=== PATIENT | female | born 1990 | race Caucasian/White ===

== ENCOUNTER 2019-07-04 12:08 | Outpatient (CLI) | payer MEDICAID, SELFPAY ==
--- NOTE | 2019-07-04 12:29 | US_ITS ---
WS: [id number] Obstetrical ultrasound, less than 14 weeks. HISTORY: DATING COMPARISON: None available. Transvaginal imaging is submitted. There is a gestational sac with a mean diameter of 1.4 cm correspo nding to a gestation of 6 weeks and 4 days. No crown-rump length, yolk sac or heart rate identified.G estational sac is irregular. Cervix is closed. No free fluid. No adnexal masses. Notified Marianne Goodrich MD at 07/04/2019 1:14 PM. Report discussed with nurse at Dr. Goodrich's off ice. US/ transvaginal [id number] IMPRESSION: Intrauterine gestational sac of 6 weeks and 4 days. No intrauterine gestation i dentified. Ectopic cannot be excluded without a viable intrauterine g estation identified. This is likely a blighted ovum.
== END 2019-07-04 12:09 | disposition home or self-care (01) ==
LOC: RAD 12:11
PROVIDERS: PCP Family Medicine; Visit Provider Family Medicine
DX: O36.80X0 Pregnancy with inconclusive fetal viability, not applicable or unspecified (principal); Z3A.01 Less than 8 weeks gestation of pregnancy
CPT/HCPCS: 76830

== ENCOUNTER 2019-07-12 14:00 | Outpatient (CLI) | payer MEDICAID, SELFPAY ==
--- NOTE | 2019-07-12 14:03 | US_ITS ---
WS: [id number] ULTRASOUND PELVIS TECHNIQUE: Transabdominal. CLINICAL INFORMATION: UNCERTAIN VIABILITY Comparison July 04, 2019 : No. FINDINGS: No visualized gestational sac or pole today. Previously visualized gestational sac is no longer visualized. Uterus Orientation: Anteverted. Size: 8.8 cm x 5.1 cm x 6.7 cm Masses: None. Cervix: cm. Endometrium: Normal. Endometrium thickness: 11.3 mm Adnexa: Normal. Both ovaries are normal. Free fluid: None. Other findings: None. US/US OB transvaginal [id number] IMPRESSION: 1. No evidence of gestational sac or pole. Endometrium measures 11.3 mm. 2. Both ovaries are normal in appearance. 3. No free fluid in the cul-de-sac. .
== END 2019-07-12 14:01 | disposition home or self-care (01) ==
LOC: RAD 14:01
PROVIDERS: PCP Family Medicine; Visit Provider Family Medicine
DX: O36.80X0 Pregnancy with inconclusive fetal viability, not applicable or unspecified (principal)
CPT/HCPCS: 76817

== ENCOUNTER 2020-12-13 12:38 | Inpatient (IN) | payer SELFPAY ==
[2020-12-13] VITALS (8 sets, daily range): BP systolic 108–132; BP diastolic 71–82; PULSE 71–98; RESP 16–18; TEMP 36.4–37.1; O2SAT 96–99; BMI 25.2
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
--- NOTE | 2020-12-13 13:27 | ECG_ITS ---
[facility] Test Date: 2020-12-13 Pat Name: Ilana Solis Department: Room: Gender: Female Gse Mechanic: : 1990 Requested By: Nate Avilez Order Number: [id number] Stan MD: Joss Norton M.D. Measurements Intervals [place] Rate: 74 P: 47 MN: 152 QRS: 20 QRSD: 100 T: 20 QT: 390 QTc: 434 Interpretive Statements SINUS RHYTHM WITH SINUS ARRHYTHMIA Compared to ECG 08/19/2018 12:42:20 Sinus tachycardia no longer present Short MN interval no longer present Electronically Signed On 12-13-2020 22:38:59 CDT by Joss Norton M.D. [email or web address] general hospitalWear My Tagsst. [email or web address].[employer]/store/OM/[id number]
[2020-12-13 14:15] LABS: Basophils % 0.7 %; Eosinophils # 0.1 10^3/uL (0.0-0.8); Eosinophils % 2.4 %; Hematocrit 41.9 % (37.0-47.0); Hemoglobin 13.1 g/dL (11.5-15.3); Lymphocytes # 1.4 10^3/uL (0.8-4.8); Lymphocytes % 29.5 %; Mean Corpuscular HGB Conc 31.3 g/dL (30.0-36.0); Mean Corpuscular Hemoglobin 29.7 pg (28.0-34.0); Mean Platelet Volume 9.9 fL (7.4-10.4); Monocytes # 0.4 10^3/uL (0.2-0.9); Monocytes % 8.5 %; Neutrophils # 2.68 10^3/uL (1.8-7.7); Neutrophils % 58.7 %; Nucleated Red Blood Cells % 0 %; Platelet Count 252 10^3/cmm (130-400); Red Blood Count 4.41 10^6/uL (4.1-5.3); Red Cell Distribution Width 12.7 % (12.1-15.1); White Blood Count 4.6 10^3/uL (4.0-10.0)
[2020-12-13 14:18] LABS: HCG Qualitative Urine. Negative (Negative)
[2020-12-13] MEDS: sodium chloride 0.9% 1,000 ML 999 ML IV (14:22)
[2020-12-13 14:31] LABS: INR 0.91 (0.8-1.2)
[2020-12-13] MEDS: ibuprofen 600 mg Tablet PO (14:33)
[2020-12-13 14:43] LABS: Alanine Aminotransferase 34 U/L (0-33); Albumin Level 4.4 g/dL (3.5-5.2); Alcohol Level 162 mg/dL (0-10); Alkaline Phosphatase 82 IU/L (35-105); Anion Gap 15.6 (5-19); Aspartate Amino Transferase 86 U/L (0-32); Blood Urea Nitrogen 9 mg/dL (6-20); Calcium 8.9 mg/dL (8.5-10.5); Carbon Dioxide 25 mmol/L (22-29); Chloride 103 mmol/L (98-107); Glomerular Filtration Rate 118.2 mL/min (90-130); Glucose 85 mg/dL (65-115); Osmolality Calculated 288 mOsm/kg (285-295); Potassium 3.6 mmol/L (3.5-5.1); Sodium 140 mmol/L (136-145); Total Bilirubin 0.4 mg/dL (0.15-1.2); Total Protein 8.4 g/dL (6.6-8.7)
[2020-12-13 14:47] LABS: Acetaminophen < 5.0 ug/mL (10-30); Salicylate < 0.3 mg/dL (3-10)
[2020-12-13 14:55] LABS: Add Urine Microscopic? YES; Bilirubin Urine Neg (Negative); Blood Urine 3+ (Negative); Glucose Urine UA Norm (Normal); Ketones Urine Negative (Negative); Leukocyte Esterase Urine Negative (Negative); Nitrate Urine Negative (Negative); Protein Urine Neg (Negative); RBC Urine 25-40 /hpf (0-2); Specific Gravity, Urine 1.015 (1.005-1.030); Squamous Epithelial Cell Urine 0-4 /hpf (0-5); Urine Appearance Clear (CLEAR); Urine Color Yellow (Yellow); Urobilinogen Urine Norm (Negative); pH Urine 6.5 (5-7)
[2020-12-13 14:56] LABS: Add Urine Culture? Yes; Bacteria Urine TRACE /hpf; Mucus Urine TRACE /hpf
[2020-12-13] MEDS: ondansetron 4 MG Tablet PO (20:58)
[2020-12-13] MEDS: trazodone 50 mg Tablet PO (20:58)
[2020-12-13] MEDS: hyDROXYzine 25 mg Capsule 50 MG PO (20:58)
[2020-12-13] MEDS: LORazepam 2 mg Tablet PO (21:28)
[2020-12-14 06:00] VITALS: BP 114/80; PULSE 98; RESP 17; TEMP 36.4; O2SAT 98
[2020-12-14 06:36] VITALS: BP 106/74; PULSE 84; RESP 17; TEMP 36.7; O2SAT 99
[2020-12-14] MEDS: multivitamin therapeutic Tablet 1 TAB PO (08:53)
[2020-12-14] MEDS: folic acid 1 mg Tablet PO (08:53)
[2020-12-14] MEDS: thiamine 100 mg Tablet PO (08:53)
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
[2020-12-14] MEDS: blistex lip oint 7 gm Tube 1 APPLIC TOPICAL ×2 (12:09→21:45)
[2020-12-14 14:00] VITALS: BP 120/88; PULSE 107; RESP 17; TEMP 37.1; O2SAT 95
[2020-12-14] MEDS: trazodone 50 mg Tablet PO (21:48)
[2020-12-14 22:00] VITALS: BP 118/83; PULSE 73; RESP 17; TEMP 36.7; O2SAT 97
--- NOTE | 2020-12-15 01:02 | PC.NURSE ---
Patient requested and received PRN medications as follows- 2144 Bilstex for fever blister relief that was somewhat helpful. 2147- Trazodone for sleep aid that has been effective.
--- NOTE | 2020-12-15 04:27 | PC.NURSE ---
Sleeping at time of 0400 CIWA.
[2020-12-15 06:00] VITALS: BP 113/75; PULSE 64; RESP 16; TEMP 36.9; O2SAT 99
[2020-12-15] MEDS: folic acid 1 mg Tablet PO (09:02)
[2020-12-15] MEDS: thiamine 100 mg Tablet PO (09:02)
[2020-12-15] MEDS: multivitamin therapeutic Tablet 1 TAB PO (09:02)
[2020-12-15] MEDS: sertraline 50 mg Tablet PO ×2 (09:03→10:36)
[2020-12-15] MEDS: blistex lip oint 7 gm Tube 1 APPLIC TOPICAL (11:15)
--- NOTE | 2020-12-15 12:17 | PM.NPN ---
Subjective NPU Subjective: Interval history: The patient says she is feeling better today and not noticing any withdrawal symptoms at this point. Most recent CIWA score was 3. She is a bit surprised that she is not having as much withdrawal, because she was not able to go through withdrawal on her own at home, no matter how many times she tried. She did feel sad when she called her son, and he was crying and missing her. She reminded herself that she is here for a reason, and that helped her stay motivated to continue her treatment. She says she always fought depression and is committed to seeing if the antidepressant Zoloft will be helpful. She thinks it might have made her eyes feel a bit weird this morning, but it is tolerable. She did have some sweating when she was sleeping last night, which could be from Zoloft or from alcohol withdrawal. She has no suicidal or homicidal ideation. We talked about her plan to attend outpatient treatment through [facility]. She will meet with the discharge planners tomorrow to begin setting that up. Mental Status Exam MSE Comments: I met with the patient in her room with the door open, and she was dressed in hospital scrubs and appropriately groomed. She was calm, cooperative, interactive, and made good eye contact. No psychomotor agitation or retardation. Speech is at a regular rate and rhythm, normal volume, good articulation, not pressured. Alert, oriented to person, place, time, and situation. Attention and concentration were intact. Memory is intact. Mood is improved. Affect is pleasant. Thought process is logical and goal-directed. Thought content: Denies auditory and visual hallucinations. No delusions or paranoia are noted. No current suicidal ideation here, and no homicidal ideation. She did have suicidal ideation at home. Fund of knowledge is intact to exam. Language is intact to exam. Insight and judgment appear to be fair. Impulse control is fair as well. Vitals/I&O/Wt Last Vital Signs Temp 98.4 F 12/15/20 06:00 Pulse 64 12/15/20 06:00 Resp 16 12/15/20 06:00 BP 113/75 12/15/20 06:00 Pulse Ox 99 12/15/20 06:00 Weight last 48 hrs Weight 70.76 kg Weight 70.76 kg Data NPU : 12/13/20 14:00 12/13/20 14:00 Micro: Microbiology 12/13/20 01:35 Urine Culture - Final Urine,Clean Catch Strep agalactiae - (group b) Microbiology 12/13/20 01:35 Urine,Clean Catch Urine Culture - Final Strep agalactiae - (group b) A&P Assessment and plan (1) Major depressive disorder, recurrent severe without psychotic features: Status: Acute (2) Alcohol use disorder, moderate, dependence: Status: Acute (3) Posttraumatic stress disorder with dissociative symptoms: Status: Acute Additional A&P Information This is a 30 year old female with a history of childhood trauma, PTSD, depression, and heavy alcohol use who was admitted for suicidal ideation with the plan to hang herself. She is also been drinking 1 to 2 pints of vodka a day and reports withdrawal nausea and shaking every morning. She has an intention to stop drinking. She also needs treatment for her PTSD which causes daily symptoms as well. RECOMMENDATION AND PLAN: 1. Started Zoloft 50 mg daily for depression, anxiety and PTSD symptoms. Side effects may include eyes feeling weird and sweating while asleep. 2. Continue every 15 minute checks for safety. 3. Encourage individual, group and milieu therapies. 4. Encourage sober living treatment after discharge at the highest level of care to which he is willing to commit. Involuntary Hold Information 96 Hour Hold: 96 Hour Involuntary Admission: Yes 96 Hour Hold Ending Date: 12/19/20 96 Hour Hold Ending Time: 17:15 Attestations U Medical Necessity Statement*: Psychiatric hospitalization is medically necessary to prevent access to lethal means, to reevaluate medication, and to coordinate a safe discharge. Patient will be in the hospital for over 2 midnights. Likely length of stay is 4 days. Coding Level of Care Code Acute Hand I Thermal Cutter for Rahulg Fwd Diagnoses Major depressive disorder, recurrent severe without psychotic features F33.2 Alcohol use disorder, moderate, dependence F10.20 Posttraumatic stress disorder with dissociative symptoms F43.10
[2020-12-15 14:00] VITALS: BP 105/77; PULSE 70; RESP 16; TEMP 36.7; O2SAT 98
[2020-12-15] MEDS: acetaminophen 325 mg Tablet 650 MG PO (14:59)
[2020-12-15] MEDS: LORazepam 2 mg Tablet PO (16:37)
[2020-12-15] MEDS: ondansetron 4 MG Tablet PO (16:37)
[2020-12-15 20:28] VITALS: BP 110/83; PULSE 88; RESP 20; TEMP 37; O2SAT 94
--- NOTE | 2020-12-15 21:36 | PC.NURSE ---
Upon assessment patient lying in bed resting. Patient denied any pain, depression, anxiety, SI/HI, hallucinations. Patient stated she feels really good and is ready to go to sleep. Will continue to monitor and follow plan of care. Q 15 min safety checks per protocol.
[2020-12-16 05:59] VITALS: BP 115/76; PULSE 55; RESP 17; TEMP 36.8; O2SAT 97
[2020-12-16] MEDS: sertraline 50 mg Tablet PO (07:50)
[2020-12-16] MEDS: acetaminophen 325 mg Tablet 650 MG PO (07:50)
[2020-12-16] MEDS: multivitamin therapeutic Tablet 1 TAB PO (07:50)
[2020-12-16] MEDS: thiamine 100 mg Tablet PO (07:51)
[2020-12-16] MEDS: folic acid 1 mg Tablet PO (07:51)
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
[2020-12-16 11:22] VITALS: BP 115/76; PULSE 55; RESP 17; TEMP 36.8; O2SAT 97
--- NOTE | 2020-12-16 11:40 | PC.NURSE ---
Discussed discharge plan of care with patient. Also notified and educated patient on discharge medication sertraline that is being delivered by our pharmacy. Patient verbalized understanding. Filled out survey and agreed that all her belongings were listed.
== END 2020-12-16 12:56 | disposition home or self-care (01) | DRG 885 ==
LOC: ER 13:07 → NP 16:44
PROVIDERS: Admitting Provider Psychiatry & Neurology Child & Adolescent Psychiatry; Emergency Provider Emergency Medicine; Visit Provider Psychiatry & Neurology Child & Adolescent Psychiatry
DX: F33.2 Major depressive disorder, recurrent severe without psychotic features (principal); R45.851 Suicidal ideations; F43.12 Post-traumatic stress disorder, chronic; X58.XXXS Exposure to other specified factors, sequela; F10.20 Alcohol dependence, uncomplicated
CPT/HCPCS: 80053; 80307; 81001; 81025; 84443; 85025; 85610; 87086; 93005; 96360; 97165; 99285; J7030; Q0162

== ENCOUNTER 2022-03-11 10:53 | Outpatient (CLI) | payer BC, MEDICAID, SELFPAY ==
--- NOTE | 2022-03-11 | US_ITS ---
WS: [id number] EARLY OBSTETRICAL ULTRASOUND (<14 WEEKS). HISTORY: FIRST TRIMESTER COMPARISON: None available. Single intrauterine gestational sac is identified. Cardiac activity at 153 BPM. [place]-rump length suly sures 7.2 cm which corresponds to a gestation of 13w3d. Normal-appearing yolk sac and amnion demonstr ated. No subchorionic hemorrhage. No free fluid. Ovaries not identified. US/US OB <= 14 weeks fetus [id number] IMPRESSION: 1. Single intrauterine gestation of 13 weeks 3 days with an EDC of 09/13/2022. 2. Normal heart rate.
== END 2022-03-11 10:54 | disposition home or self-care (01) ==
LOC: RAD 10:56
PROVIDERS: PCP Family Medicine; Visit Provider Family Medicine
DX: Z34.81 Encounter for supervision of other normal pregnancy, first trimester (principal)
CPT/HCPCS: 76801

== ENCOUNTER 2022-04-14 08:56 | Emergency (ER) | payer BC, MEDICAID, SELFPAY ==
[2022-04-14] VITALS (7 sets, daily range): BP systolic 83–111; BP diastolic 63–74; PULSE 72–112; RESP 16–18; TEMP 36.7; O2SAT 95–100; BMI 28.2
--- NOTE | 2022-04-14 09:50 | XR_ITS ---
WS: [id number] Exam: XR chest 1V portable [id number] Date/Time of Exam: 04/14/2022 9:56 AM Reason For Exam: dyspnea/cough No priors Findings: The lungs are clear and fully expanded. Costophrenic angles are sharp. No infiltrates. Bronchovascula r relief appears normal. Cardiac silhouette is unremarkable. Bony elements are intact. XR/XR chest 1V portable [id number] IMPRESSION: Unremarkable chest radiograph.
--- NOTE | 2022-04-14 09:51 | ED_ITS ---
HPI - SOB/Dyspnea General: Chief Complaint: Shortness of Breath/Dyspnea Stated Complaint: sob Time Seen by Provider: 04/14/22 09:16 Source: patient Mode of arrival: ambulatory History of Present Illness: HPI Narrative: 32-year-old female presents emergency room complaining of shortness of breath. She reports scant productive cough with clear sputum began yesterday. She is at 18 weeks gestation. She states she feels like she is breathing through a straw. She states she has no history of asthma or reactive airways. No diarrhea no vomiting. No fever sweats or chills. MD elicited complaint: shortness of breath and cough Onset (ago): day(s) (2) Timing: constant Severity: mild Exacerbating factors: nothing Relieving factors: nothing Associated symptoms: Deny abdominal pain, chest congestion, chest pain, cough, diaphoresis, dizziness, extremity pain, fever(s), hemoptysis, lightheadedness, myalgias, nausea, orthopnea, palpitations, paresthesias, polydipsia, polyuria, rash, sense of impending doom, syncope or vomiting Treatment prior to arrival: none Review of Systems Const: Denies: fever(s) or diaphoresis ENMT: Denies: throat pain, ear or mastoid pain, nasal discharge or nasal congestion Card: Denies: chest pain, palpitations, lightheadedness, syncope or orthopnea Resp: Denies: hemoptysis or chest congestion GI: Denies: abdominal pain, nausea or vomiting : Denies: flank pain, difficulty voiding, dysuria, urinary frequency or urinary urgency Musc: Denies: extremity pain Skin/Breast: Denies: rash or pruritus Neuro: Denies: dizziness Endo: Denies: polyuria or polydipsia Physical Exam Const: GENERAL APPEARANCE: cooperative and comfortable ORIENTATION/CONSCIOUSNESS: Yes awake, Yes oriented to person, Yes oriented to place and Yes oriented to time HENMT: COMMON NORMALS: normocephalic, atraumatic and hearing grossly normal bilaterally HEAD & SCALP: normocephalic and atraumatic Resp: COMMON NORMALS: normal respiratory effort, No retractions and No use of accessory muscles AUSCULTATION: wheezes Cardio: COMMON NORMALS: regular rate, regular rhythm and No murmurs present (Cardio) RATE: regular rate RHYTHM: regular rhythm GI: COMMON NORMALS: Soft to palpation and No hepatosplenomegaly present AUSCULTATION: Yes normoactive bowel sounds PALPATION: Yes Soft to palpation, No Tenderness to palpation present (GI), No Guarding due to palpation present (GI) and Yes No hepatosplenomegaly present Extremity: COMMON NORMALS: normal to inspection, capillary refill normal, no clubbing, cyanosis or edema, no calf tenderness and no pedal edema Neuro: SENSORIUM/ORIENTATION: Yes oriented to person, Yes oriented to place and Yes oriented to time Skin: COMMON NORMALS: no rashes or lesions noted GENERAL SKIN EXAM: no rashes or lesions noted Course Vital Signs: Vital signs: Vital Signs Temperature 98.1 F 04/14/22 09:08 Pulse Rate 72 04/14/22 10:34 Respiratory Rate 18 04/14/22 10:30 Blood Pressure 99/74 04/14/22 09:10 Pulse Oximetry 99 04/14/22 10:30 Oxygen Delivery Me thod 04/14/22 10:30 MDM - SOB/Dyspnea Medical Decision Making Seen with complaints of cough and wheezing. Wheezing improved since symptoms improved after albuterol treatment. Chest x-ray did not show any signs of pneumonia. COVID test is pending. Flu was negative. She is not hypoxic at all her white count is not elevated. Urine as an outpatient with albuterol as need ed follow-up with her primary care doc or SPRAY MACHINE OPERATOR as scheduled Medical Records I reviewed the patient's medical records. Lab Data I reviewed the patient's lab results. 04/14/22 10:39 04/14/22 10:39 Labs/Radiology: Radiology Impressions Chest X-Ray 04/14/22 09:50 IMPRESSION: Unremarkable chest radiograph. Laboratory Results WBC 9.2 10^3/uL (4.0-10.0) 04/14/22 10:39 RBC 3.99 10^6/uL (4.1-5.3) L 04/14/22 10:39 Hgb 11.1 g/dL (11.5-15.3) L 04/14/22 10:39 Hct 35.0 % (37.0-47.0) L 04/14/22 10:39 MCV 87.7 fl (81-99) 04/14/22 10:39 MCH 27.8 pg (28.0-34.0) L 04/14/22 10:39 MCHC 31.7 g/dL (30.0-36.0) 04/14/22 10:39 RDW 14.7 % (12.1-15.1) 04/14/22 10:39 Plt Count 204 10^3/cmm (130-400) 04/14/22 10:39 MPV 11.8 fL (7.4-10.4) H 04/14/22 10:39 Neut % (Auto) 82.8 % 04/14/22 10:39 Lymph % (Auto) 4.6 % 04/14/22 10:39 [place] % (Auto) 9.5 % 04/14/22 10:39 Eos % (Auto) 1.1 % 04/14/22 10:39 Baso % (Auto) 0.4 % 04/14/22 10:39 Neut # (Auto) 7.58 10^3/uL (1.8-7.7) 04/14/22 10:39 Lymph # (Auto) 0.4 10^3/uL (0.8-4.8) L 04/14/22 10:39 [place] # (Auto) 0.9 10^3/uL (0.2-0.9) 04/14/22 10:39 Eos # (Auto) 0.1 10^3/uL (0.0-0.8) 04/14/22 10:39 Baso # (Auto) 0.0 10^3/uL (0.0-0.1) 04/14/22 10:39 Nucleated RBC % (auto) 0 % 04/14/22 10:39 Nucleated RBCs # 0.0 /100WBC 04/14/22 10:39 Sodium 137 mmol/L (136-145) 04/14/22 10:39 Potassium 3.6 mmol/L (3.5-5.1) 04/14/22 10:39 Chloride 105 mmol/L (98-107) 04/14/22 10:39 Carbon Dioxide 19 mmol/L (22-29) L 04/14/22 10:39 Anion Gap 16.6 (5-19) 04/14/22 10:39 BUN 6 mg/dL (6-20) 04/14/22 10:39 Creatinine 0.4 mg/dL (0.5-0.9) L 04/14/22 10:39 GFR Calculation 186.2 mL/min (90-130) H 04/14/22 10:39 Glucose 102 mg/dL (65-115) 04/14/22 10:39 Calculated Osmolality 282 mOsm/kg (285-295) L 04/14/22 10:39 Calcium 9.2 mg/dL (8.5-10.5) 04/14/22 10:39 Total Bilirubin 0.2 mg/dL (0.15-1.2) 04/14/22 10:39 AST 11 U/L (0-32) 04/14/22 10:39 ALT 9 U/L (0-33) 04/14/22 10:39 Alkaline Phosphatase 50 U/L (35-105) 04/14/22 10:39 Total Protein 6.7 g/dL (6.6-8.7) 04/14/22 10:39 Albumin 3.4 g/dL (3.5-5.2) L 04/14/22 10:39 Globulin 3.3 g/dL (1.3-4.6) 04/14/22 10:39 Urine Color Yellow (Yellow) 04/14/22 10:15 Urine Appearance Clear (CLEAR) 04/14/22 10:15 Urine pH 8 (5-7) H 04/14/22 10:15 Ur Specific [place] 1.015 (1.005-1.030) 04/14/22 10:15 Urine Protein Neg (Negative) 04/14/22 10:15 Urine Glucose (UA) Norm (Normal) 04/14/22 10:15 Urine Ketones Negative (Negative) 04/14/22 10:15 Urine Blood Neg (Negative) 04/14/22 10:15 Urine Nitrate Negative (Negative) 04/14/22 10:15 Urine Bilirubin Neg (Negative) 04/14/22 10:15 Prot Sulfosalicylic Acd Negative (Negative) 04/14/22 10:15 Urine Urobilinogen Norm mg/dL (Negative) 04/14/22 10:15 Ur Leukocyte Esterase Negative (Negative) 04/14/22 10:15 Influenza Type A Ag negative (Negative) 04/14/22 10:10 Influenza Type B Ag negative (Negative) 04/14/22 10:10 Discharge Plan Discharge Patient Disposition: Home Clinical Impression: Reactive airway disease, Second trimester Condition: Stable Prescriptions: New albuterol sulfate 90 mcg/actuation HFA aerosol inhaler 2 inh INHALATION Q4H PRN (Reason: shortness of breath or wheezing) Qty: 18 0RF No Action 28 mg iron- 800 mcg Tablet 1 tab PO DAILY Discharge Orders: Discharge ED (Routine); Ordered 04/14/22 Ordered By: Pedro Alfaro Referrals: Evangelina Arriaga DO [Primary Care Provider] - Discharge Diet: Usual diet Discharge Activity: Resume usual activity Patient Instructions: Opioid Safety, Pain Management Activity Restrictions/Additional Instructions: You are seen today for cough and shortness of breath. Chest x-ray did not show any pneumonia, your COVID test is still pending. You are given a prescription for albuterol inhaler since she had significant improvement with the treatment given in the emergency room. Coding Level of Care Code ED Customer Contact Sales Associate for Quinton Schroeder
[2022-04-14 10:23] LABS: Add Urine Microscopic? NO; Charge for UA Resulting for Rev
[2022-04-14] MEDS: albuterol 2.5 mg/3 mL Neb INHALATION (10:30)
[2022-04-14 10:34] LABS: Bilirubin Urine Neg (Negative); Blood Urine Neg (Negative); Glucose Urine UA Norm (Normal); Ketones Urine Negative (Negative); Leukocyte Esterase Urine Negative (Negative); Nitrate Urine Negative (Negative); Protein Urine Neg (Negative); Specific Gravity, Urine 1.015 (1.005-1.030); Sulfosalicylic Acid Urine Negative (Negative); Urine Appearance Clear (CLEAR); Urine Color Yellow (Yellow); Urobilinogen Urine Norm (Negative); pH Urine 8 (5-7)
[2022-04-14 10:42] LABS: Influenza A by IFA negative (Negative); Influenza B by IFA negative (Negative)
[2022-04-14 10:54] LABS: Basophils % 0.4 %; Eosinophils # 0.1 10^3/uL (0.0-0.8); Eosinophils % 1.1 %; Hemoglobin 11.1 g/dL (11.5-15.3); Lymphocytes # 0.4 10^3/uL (0.8-4.8); Lymphocytes % 4.6 %; Mean Corpuscular HGB Conc 31.7 g/dL (30.0-36.0); Mean Corpuscular Hemoglobin 27.8 pg (28.0-34.0); Mean Corpuscular Volume 87.7 fl (81-99); Mean Platelet Volume 11.8 fL (7.4-10.4); Monocytes # 0.9 10^3/uL (0.2-0.9); Monocytes % 9.5 %; Neutrophils # 7.58 10^3/uL (1.8-7.7); Neutrophils % 82.8 %; Nucleated Red Blood Cells % 0 %; Platelet Count 204 10^3/cmm (130-400); Red Blood Count 3.99 10^6/uL (4.1-5.3); Red Cell Distribution Width 14.7 % (12.1-15.1); White Blood Count 9.2 10^3/uL (4.0-10.0)
[2022-04-14 11:13] LABS: Alanine Aminotransferase 9 U/L (0-33); Albumin Level 3.4 g/dL (3.5-5.2); Alkaline Phosphatase 50 U/L (35-105); Anion Gap 16.6 (5-19); Aspartate Amino Transferase 11 U/L (0-32); Blood Urea Nitrogen 6 mg/dL (6-20); Calcium 9.2 mg/dL (8.5-10.5); Carbon Dioxide 19 mmol/L (22-29); Chloride 105 mmol/L (98-107); Globulin 3.3 g/dL (1.3-4.6); Glomerular Filtration Rate 186.2 mL/min (90-130); Glucose 102 mg/dL (65-115); Osmolality Calculated 282 mOsm/kg (285-295); Potassium 3.6 mmol/L (3.5-5.1); Sodium 137 mmol/L (136-145); Total Bilirubin 0.2 mg/dL (0.15-1.2); Total Protein 6.7 g/dL (6.6-8.7)
[2022-04-14 13:04] LABS: Adenovirus Not Detected (NOT DETECT); Chlamydia Pneumoniae Not Detected (NOT DETECT); Coronavirus 229E,HKU1,NL63,OC4 Not Detected (NOT DETECT); Human Metapneumovirus Not Detected (NOT DETECT); Human Rhinovirus/Enterovirus Detected (NOT DETECT); Influenza A Not Detected (NOT DETECT); Influenza A H1 Not Detected (NOT DETECT); Influenza A H1-2009 Not Detected (NOT DETECT); Influenza A H3 Not Detected (NOT DETECT); Influenza B Not Detected (NOT DETECT); Mycoplasma Pneumoniae Not Detected (NOT DETECT); Parainfluenza Virus Type 1 Not Detected (NOT DETECT); Parainfluenza Virus Type 2 Not Detected (NOT DETECT); Parainfluenza Virus Type 3 Not Detected (NOT DETECT); Parainfluenza Virus Type 4 Not Detected (NOT DETECT); Respiratory Syncytial Virus A Not Detected (NOT DETECT); Respiratory Syncytial Virus B Not Detected (NOT DETECT); SARS-COV-2 Not Detected (NOT DETECT)
[2022-04-14 13:09] LABS: Human Metapneumovirus Not Detected (NOT DETECT); Human Rhinovirus/Enterovirus Detected (NOT DETECT); Results from Genmark
== END 2022-04-14 11:55 | disposition home or self-care (01) ==
PROVIDERS: Emergency Provider Family Medicine; PCP Family Medicine
DX: O99.512 Diseases of the respiratory system complicating pregnancy, second trimester (principal); J45.909 Unspecified asthma, uncomplicated; Z3A.18 18 weeks gestation of pregnancy; Z20.822 Contact with and (suspected) exposure to COVID-19
CPT/HCPCS: 36415; 71045; 80053; 81003; 85025; 87635; 87801; 87804; 94640; 99284; J7613

== ENCOUNTER 2022-04-29 09:52 | Outpatient (CLI) | payer BC, MEDICAID, SELFPAY ==
--- NOTE | 2022-04-29 09:59 | US_ITS ---
WS: [id number] ULTRASOUND OB COMPLETE TECHNIQUE: Complete ultrasound. CLINICAL INFORMATION: NORMAL -2ND TRIMESTER/ANATOMY CHECK COMPARISON: March 11, 2022 FINDINGS: Single interuterine gestation is identified with breech presentation. Placenta is anterior fundal. Placenta grade 1. Normal amniotic fluid volume. cardiac activity: 147 BPM. AGA: 20w5d KAJAL by ultrasound: 09/11/2022 Estimated weight: 374 g; 0 lbs. 13 oz. BDP: 4.9 cm = 20w6d HC: 18.3 cm = 20w5d AC: 15.6 cm = 20w5d FEMUR LENGTH: 3.4 cm = 20w5d Anatomic survey: Anatomic survey is normal. Normal stomach. Kidneys and bladder are normal. Normal 3 vessel cord. Norm al 3 vessel cord insertion. Normal 4 chamber heart. Normal spine. Intracranial contents are normal. N ormal posterior fossa and cisterna magna. US/US OB >= 14 weeks fetus [id number] IMPRESSION: 1. Single intrauterine with visualized cardiac activity. AGA 20w5d w ith KAJAL 09/11/2022. 2. presentation is breech. 3. Placenta is anterior fundal. No evidence of abruption or previa. 4. anatomic survey is normal. 5. Normal amniotic fluid volume.
== END 2022-04-29 09:53 | disposition home or self-care (01) ==
PROVIDERS: PCP Family Medicine; Visit Provider Family Medicine
DX: Z34.82 Encounter for supervision of other normal pregnancy, second trimester (principal); Z36.89 Encounter for other specified antenatal screening; Z3A.20 20 weeks gestation of pregnancy
CPT/HCPCS: 76805

== ENCOUNTER 2022-09-09 05:19 | Inpatient (IN) | payer BC, MEDICAID, SELFPAY ==
[2022-09-09] VITALS (58 sets, daily range): BP systolic 97–138; BP diastolic 56–96; PULSE 55–108; RESP 16–17; TEMP 35.9–36.9; O2SAT 91–100; BMI 31.4
[2022-09-09 06:03] LABS: Basophils % 0.5 %; Eosinophils # 0.1 10^3/uL (0.0-0.8); Eosinophils % 0.8 %; Hematocrit 31.4 % (37.0-47.0); Lymphocytes % 23.1 %; Mean Corpuscular HGB Conc 31.8 g/dL (30.0-36.0); Mean Corpuscular Hemoglobin 27.9 pg (28.0-34.0); Mean Corpuscular Volume 87.5 fl (81-99); Mean Platelet Volume 11.2 fL (7.4-10.4); Monocytes # 0.7 10^3/uL (0.2-0.9); Monocytes % 8.6 %; Neutrophils # 5.68 10^3/uL (1.8-7.7); Neutrophils % 66.6 %; Nucleated Red Blood Cells % 0 %; Platelet Count 220 10^3/cmm (130-400); Red Blood Count 3.59 10^6/uL (4.1-5.3); Red Cell Distribution Width 15.1 % (12.1-15.1); White Blood Count 8.5 10^3/uL (4.0-10.0)
[2022-09-09] MEDS: miSOPROStol 100 mcg tablet 25 MCG VAGINAL ×2 (06:13→10:32)
[2022-09-09 06:48] LABS: Amphetamines Screen Urine Negative (Negative); Barbiturates Screen Urine Negative (Negative); Benzodiazepines Screen Urine Negative (Negative); Cocaine Screen Urine Negative (Negative); Opiate Screen Urine Negative (Negative); PCP Screen Urine Negative (Negative); THC Screen Urine Positive (Negative)
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
[2022-09-09] MEDS: lactated ringers 1,000 ML 999 ML IV ×2 (14:54→15:43)
--- NOTE | 2022-09-09 16:17 | ANES.PREANE2 ---
Pre-Anesthetic Assessment Height/Weight: Height 1.65 m Weight 85.729 kg Temp Pulse Resp BP Pulse Ox O2 Del Method 97.5 F L 74 16 106/71 100 Room Air 09/09/22 14:56 09/09/22 16:13 09/09/22 05:53 09/09/22 16:12 09/09/22 16:13 09/09/22 05:27 Familial anesthetic complications: none Was Beta Yahir taken within 24 hours: N/A Was Clonidine taken within 24 hours: N/A Social No alcohol and No tobacco Exam alert, oriented x 3, clear to auscultation bilaterally and regular rate & rhythm Airway Submandibular: within normal limits Cervical ROM: within normal limits Mallampati: Class II Dentition: full History/ROS No significant history except as noted Pulmonary Asthma Anesthetic Plan ASA status: 2 Anesthesia: Regional (specify below) (Labor epidural) Medications/Allergies Home Medications Medication Instructions Recorded Confirmed Last Taken Type albuterol sulfate 90 mcg/actuation 2 inh inhalation Q4H PRN shortness 04/14/22 Unknown Rx aerosol inhaler of breath or wheezing #18 grams vit no.95-ferrous 1 tab PO DAILY 04/14/22 09/09/22 1 Day Ago History fumarate 28 mg-folic acid 800 mcg ~09/08/22 tablet () Allergies Allergy/AdvReac Type Severity Reaction Status Date / Time codeine Allergy ADR-Itching Verified 04/14/22 11:19 Current Medications Generic Name Dose Route Start Last Admin Trade Name Freq PRN Reason Stop Dose Admin Lactated Ringer's 1,000 mls @ 999 mls/hr 09/09/22 14:44 09/09/22 15:43 Lactated Ringers IV 999 mls/hr .Q1H1M PRN Administration See label comments Ropivacaine 100 mg in 50 mls @ 10 mls/hr 09/09/22 14:45 09/09/22 15:43 Naropin Syringe EPIDURAL 10 mls/hr .Q5H ROMAINE Administration Misoprostol 25 mcg 09/09/22 10:18 09/09/22 10:32 Misoprostol 100 Mcg Tablet VAGINAL 25 mcg Q4H PRN Administration cervical ripening PFSH Anesthesia Female Reproductive History : 4 Data Anesthesia 09/09/22 05:30 Short CBC 09/09/22 Range/Units 05:30 WBC 8.5 (4.0-10.0) 10^3/uL Hgb 10.0 L (11.5-15.3) g/dL Hct 31.4 L (37.0-47.0) % MCV 87.5 (81-99) fl Plt Count 220 (130-400) 10^3/cmm Neut % (Auto) 66.6 % Neut # (Auto) 5.68 (1.8-7.7) 10^3/uL Cardiac Studies: No Data to Display Anesthesia Procedures Epidural Time Out Performed: Yes Consents Signed: Procedure Consent Consent: requested by attending/covering physician, from patient, risks and benefits reviewed and patient agrees to proceed Lumbar Level: L3-L4 Epidural position: sitting Epidural procedure: sterile prep of area, 1% lidocaine to numb the area, 18 g needle, neg for paresthesia, test dose given, 1.5% xylocaine 1:200k epi, 0.2% Ropivacaine bolus ml (5ml), placed PCEA, no systemic response, sterile dressing applied and 0.2% Ropiavacaine @ mls/hr (10) Additional Comments: LYNDA at 4cm, cath at 9cm
[2022-09-09] MEDS: dextrose 5%-lactated ringers 1,000 ML 125 ML IV (17:29)
--- NOTE | 2022-09-09 18:27 | PM.DELIVERY ---
Delivery Note: Date of delivery: September 09, 2022 Pre-delivery diagnoses: Term False positive RPR Rh- status Post-delivery diagnoses: Term delivery of viable male Procedure: Spontaneous vaginal delivery Delivering Physician: Evangelina Arriaga DO Estimated blood loss (mL): 250 Pre-Delivery Course: Admitted for induction of labor with SVE of 2/50/-3. Given 2 doses Cytotec 4 hours apart with progression to 3/70/-3 4 hours after second dose. At that time she requested epidural. After epidural Pitocin started and she progressed appropriately to complete. Delivery: Patient progressed to complete. Patient placed in lithotomy position. Patient pushed with adequate effort. Head delivered in FUNMILAYO position, no nuchal cord was present. Shoulders and rest of body delivered without difficulty with adequate epidural anesthesia. Mouth and nares bulb suctioned. placed on maternal abdomen. Cord clamped and cut after 1 delay. Placenta spontaneously delivered and intact with three-vessel cord noted. Pitocin started. Fundus was noted to be firm. The vagina and cervix were inspected and periurethral abrasions with no lacerations were noted. Fundus was again noted to be firm. Male born at 1811 with 8/9 weighing 7lb 8oz and measuring 21 inches in length Placenta noted to be intact with centrally inserted umbilical cord and three-vessel cord. Complications: Maternal none Infant none History History History 4 Term 1 0 Miscarriages/Ectopic 2 Living Children 1 Coding Level of Care Code Acute Code for Chg Fwd Diagnoses
[2022-09-09] MEDS: ibuprofen 800 mg tablet PO (20:17)
[2022-09-09] MEDS: benzocaine-menthol 78 gm Canister 1 SPRAY TOPICAL (20:17)
[2022-09-09] MEDS: lanolin oint 7 gm 1 APPLIC TOPICAL (20:18)
[2022-09-10 00:34] VITALS: BP 110/71; PULSE 84; RESP 16
[2022-09-10 04:00] VITALS: BP 114/74; PULSE 62; RESP 16; TEMP 36.7; O2SAT 97
[2022-09-10 08:39] LABS: Hemoglobin 9.7 g/dL (11.5-15.3); Mean Corpuscular HGB Conc 32.3 g/dL (30.0-36.0); Mean Corpuscular Hemoglobin 29.1 pg (28.0-34.0); Mean Corpuscular Volume 90.1 fl (81-99); Mean Platelet Volume 11.3 fL (7.4-10.4); Platelet Count 171 10^3/cmm (130-400); Red Blood Count 3.33 10^6/uL (4.1-5.3); Red Cell Distribution Width 15.3 % (12.1-15.1); White Blood Count 9.9 10^3/uL (4.0-10.0)
[2022-09-10 08:48] VITALS: BP 107/69; PULSE 72; RESP 16; TEMP 36.7; O2SAT 97
[2022-09-10] MEDS: ibuprofen 800 mg tablet PO ×3 (09:15→22:18)
[2022-09-10] MEDS: docusate sodium 100 mg Capsule PO ×2 (09:15→22:18)
[2022-09-10] MEDS: prenatal vitamin Capsule 1 CAP PO (09:15)
[2022-09-10] MEDS: lanolin oint 7 gm 1 APPLIC TOPICAL (09:16)
--- NOTE | 2022-09-10 12:08 | ANE.PACU2 ---
Inpatient post-anesthesia follow up: Airway intact: Yes Vital signs: Temperature 98.1 F Pulse Rate 72 Respiratory Rate 16 Blood Pressure 107/69 Pulse Oximetry 97 Oxygen Delivery Me thod Room Air Oxygen Flow Rate Fraction of Inspir ed Oxygen Hydration adequate: Yes Nausea and vomiting: No Pain level: 2 Mental status: Baseline
[2022-09-10 16:41] VITALS: BP 104/65; PULSE 80; RESP 16; TEMP 36.8; O2SAT 96
--- NOTE | 2022-09-10 16:50 | P.PN_ITS ---
THERMAL CUTTER HELPER Subjective Subjective: Interval history: Patient is seen and examined today. Patient is breast feeding and with intermittent trouble latching. She is tolerating a normal diet without nausea or vomiting. Vaginal bleeding is minimal and decreasing. She reports passing a couple small clots initially but has had none since. She is ambulating without difficulty. Normal urination and has not yet had a bowel movement. Labor: Station: 0 Amniotic Membrane Status: Intact Monitor Mode: Palpation Contraction Pattern: Regular Status: Category I Vitals/I&O/Wt Last Vital Signs Temp 98.2 F 09/10/22 16:41 Pulse 80 09/10/22 16:41 Resp 16 09/10/22 16:41 BP 104/65 09/10/22 16:41 Pulse Ox 96 09/10/22 16:41 O2 Del Method Room Air 09/10/22 16:41 Weight last 48 hrs Weight 189 lb Physical Exam Const: COMMON NORMALS: no acute distress, healthy appearing and alert Resp: COMMON NORMALS: normal respiratory effort and clear to auscultation bilaterally AUSCULTATION: clear to auscultation bilaterally Cardio: COMMON NORMALS: regular rate, regular rhythm, S1 normal heart sound present, S2 normal heart sound present and No murmurs present (Cardio) RATE: regular rate RHYTHM: regular rhythm HEART SOUNDS: S1 normal heart sound present and S2 normal heart sound present : OTHER: Uterine fundus firm and at the umbilicus. Extremity: NARRATIVE EXTREMITY EXAM: no LE edema Neuro: SENSORIUM/ORIENTATION: Yes alert Urinary Catheter Management: Santamaria Latex: Cath Placed During This Visit: yes Urinary Catheter Date of Insertion: 09/09/22 Urinary Catheter Time of Insertion: 16:30 Data 09/10/22 08:18 A&P Assessment and plan (1) Spontaneous vaginal delivery: 32-year-old G4 now P2 on day #1 after spontaneous vaginal delivery without complication. Routine care. hemoglobin with appropriate decline at 9.6 from 10 on admission. Due to low starting hemoglobin continued on daily iron supplementation. Breast-feeding with intermittent issues?encouraged calling for assistance when needed. Encourage ambulation, showering normal diet. Anticipate discharge home tomorrow. Follow-up planned with Dr. Arriaga at 2 and 6 weeks . (2) Biological false positive RPR test: Plan to retest outpatient after 4 weeks. Attestations Medical Necessity Statement*: Ilana L Solis's hospital stay will require greater than 2 midnights for rout ine labor, delivery, and care. Coding Level of Care Code Acute Code for Chg Fwd Diagnoses Spontaneous vaginal delivery O80 Biological false positive RPR test R76.8
[2022-09-10 21:16] VITALS: BP 108/64; PULSE 77; RESP 16; TEMP 36.9; O2SAT 98
[2022-09-11 04:03] VITALS: BP 114/65; PULSE 63; RESP 16; TEMP 37.1
--- NOTE | 2022-09-11 08:28 | P.DS_ITS ---
Discharge Providers DIVORCE MEDIATOR Date of Admission: 09/09/22 05:19 Date of Discharge: 09/11/22 Attending Provider at Admission: Evangelina Arriaga DO Attending Provider at Discharge: Evangelina Arriaga DO Primary Care Provider: Evangelina Arriaga DO Diagnoses at Discharge Discharge Diagnosis (1) Spontaneous vaginal delivery: Status: Acute (2) Biological false positive RPR test: Status: Acute Reason for Visit Reason for Visit: Induction of Labor Hospital Course Hospital Course Pre-Delivery Course:?? Admitted for induction of labor with SVE of 2/50/-3.? Given 2 doses Cytotec 4 hours apart with progression to 3/70/-3 4 hours after second dose.? At that time she requested epidural.? After epidural Pitocin started and she progressed appropriately to complete. Delivery:?? Patient progressed to complete. Patient placed in lithotomy position. Patient pushed with adequate effort. Head delivered in FUNMILAYO position, no nuchal cord was present. Shoulders and rest of body delivered without difficulty with adequate epidural anesthesia. Mouth and nares bulb suctioned. Infant placed on maternal abdomen.? Cord clamped and cut after 1 delay.? Placenta spontaneously delivered and intact with three-vessel cord noted. Pitocin started. Fundus was noted to be firm. The vagina and cervix were inspected and periurethral abrasions with no lacerations were noted. Fundus was again noted to be firm. Male born at 1811 with 8/9 weighing 7lb 8oz and measuring 21 inches in length Placenta noted to be intact with centrally inserted umbilical cord and three- vessel cord. Complications: Maternal none ? none course: Patient underwent on 09/09/22. course was uncomplicated. Following delivery patient ambulated well, tolerated a normal diet without nausea or vomiting. Pain was well-controlled on PO medications, well, no leg/calf pain, no calf/leg swelling, normal urination, passing gas and normal bowel movements. Vaginal bleeding thin lochia and decreasing. labs significant for Hgb 9.7 from Hgb 10 on admission. Her blood type is A negative and inflant blood type is A positive- she was given rhogam prior to discharge. She is continued on iron supplementation. control was discussed and patient prefers to discuss further on follow-up. Follow-up planned for [address] Arriaga at [facility]. Warning signs for endometritis, pre-eclampsia, DVT/PE, mastitis were reviewed, discussed additional warning signs including increased vaginal bleeding, worsening abdominal pain. Pelvic rest and activity precautions reviewed as well. She is discharged on 09/11/22 in stable condition. Information Peripartum Data: Infant Delivery Method: Vaginal Physical Exam Const: COMMON NORMALS: no acute distress, healthy appearing and alert Resp: COMMON NORMALS: normal respiratory effort and clear to auscultation bilaterally AUSCULTATION: clear to auscultation bilaterally Cardio: COMMON NORMALS: regular rate, regular rhythm, S1 normal heart sound present, S2 normal heart sound present and No murmurs present (Cardio) RATE: regular rate RHYTHM: regular rhythm HEART SOUNDS: S1 normal heart sound present and S2 normal heart sound present : OTHER: Uterine fundus firm and at the umbilicus. Extremity: NARRATIVE EXTREMITY EXAM: no LE edema Neuro: SENSORIUM/ORIENTATION: Yes alert Urinary Catheter Management: Santamaria Latex: Cath Placed During This Visit: yes Urinary Catheter Date of Insertion: 09/09/22 Urinary Catheter Time of Insertion: 16:30 History History History 4 Term 2 0 Miscarriages/Ectopic 2 Living Children 2 Discharge Data Studies Completed and Pending Pending at discharge Category Date Time Status Complete Crossmatch Routine Lab 09/09/22 05:30 Results Rho D Immune Globulin Routine Lab 09/09/22 05:30 Results Type and Screen Routine Lab 09/09/22 05:30 Results Laboratory Results WBC 9.9 10^3/uL (4.0-10.0) 09/10/22 08:18 RBC 3.33 10^6/uL (4.1-5.3) L 09/10/22 08:18 Hgb 9.7 g/dL (11.5-15.3) L 09/10/22 08:18 Hct 30.0 % (37.0-47.0) L 09/10/22 08:18 MCV 90.1 fl (81-99) 09/10/22 08:18 MCH 29.1 pg (28.0-34.0) 09/10/22 08:18 MCHC 32.3 g/dL (30.0-36.0) 09/10/22 08:18 RDW 15.3 % (12.1-15.1) H 09/10/22 08:18 Plt Count 171 10^3/cmm (130-400) 09/10/22 08:18 MPV 11.3 fL (7.4-10.4) H 09/10/22 08:18 Neut % (Auto) 66.6 % 09/09/22 05:30 Lymph % (Auto) 23.1 % 09/09/22 05:30 Imperial % (Auto) 8.6 % 09/09/22 05:30 Eos % (Auto) 0.8 % 09/09/22 05:30 Baso % (Auto) 0.5 % 09/09/22 05:30 Neut # (Auto) 5.68 10^3/uL (1.8-7.7) 09/09/22 05:30 Lymph # (Auto) 2.0 10^3/uL (0.8-4.8) 09/09/22 05:30 Imperial # (Auto) 0.7 10^3/uL (0.2-0.9) 09/09/22 05:30 Eos # (Auto) 0.1 10^3/uL (0.0-0.8) 09/09/22 05:30 Baso # (Auto) 0.0 10^3/uL (0.0-0.1) 09/09/22 05:30 Nucleated RBC % (auto) 0 % 09/09/22 05:30 Nucleated RBCs # 0.0 /100WBC 09/09/22 05:30 Urine Opiates Screen Negative ng/mL (Negative) 09/09/22 05:30 Ur Barbiturates Screen Negative ng/mL (Negative) 09/09/22 05:30 Ur Phencyclidine Scrn Negative ng/mL (Negative) 09/09/22 05:30 Ur Amphetamines Screen Negative ng/mL (Negative) 09/09/22 05:30 U Benzodiazepines Scrn Negative ng/mL (Negative) 09/09/22 05:30 Urine Cocaine Screen Negative ng/mL (Negative) 09/09/22 05:30 U Marijuana (THC) Screen Positive ng/mL (Negative) H 09/09/22 05:30 Blood Type A Negative 09/09/22 05:30 Rho(D) Type Negative 09/09/22 05:30 Antibody Screen Negative 09/09/22 05:30 Screen Negative (Negative) 09/10/22 08:18 Vitals Last Vital Signs Temp 98.7 F 09/11/22 04:03 Pulse 63 09/11/22 04:03 Resp 16 09/11/22 04:03 BP 114/65 09/11/22 04:03 Pulse Ox 98 09/10/22 21:16 O2 Del Method Room Air 09/11/22 04:03 Discharge Plan Discharge Patient Disposition: Home Condition: Stable Prescriptions: New ibuprofen 800 mg Tablet 800 mg PO TID Qty: 90 0RF docusate sodium 100 mg Capsule 100 mg PO BID Qty: 60 0RF ferrous sulfate 325 mg (65 mg iron) Tablet,Delayed Release (Dr/Ec) 325 mg PO DAILY Qty: 90 0RF Continued PNV cmb#95-ferrous fumarate-FA [] 28 mg iron- 800 mcg Tablet 1 tab PO DAILY albuterol sulfate 90 mcg/actuation HFA aerosol inhaler 2 inh INHALATION Q4H PRN (Reason: shortness of breath or wheezing) Qty: 18 0RF Discharge Orders: Discharge Order (Routine); Ordered 09/11/22 Ordered By: Evangelina Arriaga Referrals: Evangelina Arriaga DO [Primary Care Provider] - 09/28/22 9:15 am (Your 2 week appointment will be September 28 @ 915am Your 6 week appointment will be October 28 @ 800am) Discharge Diet: Usual diet Patient Instructions: Depression (DC), Bleeding (DC), Preeclampsia and Eclampsia After Delivery (GEN), Hemorrhage (DC), OB Discharge Report, OB Food/Drug Interaction Guide, OB Care at Home, Opioid Safety, OB Home Care, OB Vaginal Deliveries Activity Restrictions/Additional Instructions: Pelvic rest for 6 weeks. Follow-up with Dr. Arriaga at 2 and 6 weeks . Discharge Attestations DIVORCE MEDIATOR Time Spent in Discharge Care*: less than 30 min Status at Discharge: Cognitive status at discharge: cognitively intact , Behavioral status at discharge: cooperative , Coding Level of Care Code Acute Code for Chg Fwd Diagnoses Spontaneous vaginal delivery O80 Biological false positive RPR test R76.8
[2022-09-11 09:38] VITALS: BP 122/76; PULSE 70; RESP 15; TEMP 36.9; O2SAT 98
[2022-09-11] MEDS: ibuprofen 800 mg tablet PO (09:43)
[2022-09-11] MEDS: docusate sodium 100 mg Capsule PO (09:43)
[2022-09-11] MEDS: prenatal vitamin Capsule 1 CAP PO (09:43)
[2022-09-11 11:20] VITALS: PULSE 56; O2SAT 100
[2022-09-11 16:55] VITALS: PULSE 60; O2SAT 100
[2022-09-11 16:57] VITALS: BP 127/61; PULSE 57
[2022-09-11 17:00] VITALS: PULSE 56; O2SAT 100
== END 2022-09-11 11:20 | disposition home or self-care (01) | DRG 807 ==
LOC: OPOB 05:20 → OBGYN 05:20
PROVIDERS: Admitting Provider Family Medicine; PCP Family Medicine; Visit Provider Family Medicine
DX: O80 Encounter for full-term uncomplicated delivery (principal); Z37.0 Single live birth; Z3A.39 39 weeks gestation of pregnancy
CPT/HCPCS: 36415; 51702; 59025; 59409; 80306; 85025; 85027; 85460; 86850; 86900; 90384; J2795; J7040; J7120; J7121